=== PATIENT | female | born 1985 | race Caucasian/White ===

== ENCOUNTER 2020-05-19 07:16 | Day surgery (SDC) | payer BC ==
[~2020-05-19 07:16] MED LIST: Sodium Chloride 0.9% 10 ML Syringe FLUSH PRN; ceFAZolin 1 GM Vial IVPUSH ONE; ceFAZolin 1 GM in Sodium Chloride 0.9% 50 ML IV ONE
[2020-05-19] MEDS ORDERED: Lactated Ringers 1,000 ML IV ONE (07:17)
[2020-05-19] MEDS ORDERED: Rocuronium 50 MG/5 ML Vial IV ONE (07:17)
[2020-05-19] MEDS ORDERED: Propofol 200 MG/20 ML SDV IV ONE (07:17)
[2020-05-19] MEDS ORDERED: fentaNYL 100 MCG/2 ML SDV IV ONE (07:17)
[2020-05-19] MEDS ORDERED: Midazolam 1 MG/ML 2 ML SDV IV ONE (07:17)
[2020-05-19] MEDS ORDERED: Ketorolac 30 MG/ML SDV IVPUSH ONE (07:17)
[2020-05-19] MEDS ORDERED: Ondansetron 4 MG/2 ML SDV IVPUSH ONE (07:17)
[2020-05-19] MEDS ORDERED: Scopolamine 1.5 MG Transdermal Patch TOP ONE (07:40)
[2020-05-19] MEDS: Lactated Ringers 1,000 ML IV SCH ×2 (08:13→09:28)
[2020-05-19] MEDS ORDERED: Lidocaine 1% with EPINEPHrine 1:100,000 20 ML MDV INJECT ONE (08:46)
[2020-05-19] MEDS ORDERED: Bupivacaine 0.5% 30 ML SDV INJECT ONE (08:46)
--- NOTE | 2020-05-19 09:11 | PCM.OPNOTE ---
- General Post-Op/Procedure Note Date of Surgery/Procedure: 05/19/20 Operative Procedure(s): umbilical hernia repair Findings: 2.5 cm defect Pre Op Diagnosis: umbilical hernia without obstruction and gangrene Post-Op Diagnosis: Same Anesthesia Technique: General LMA, Local (7 ml 1% lidocaine with epi/0.5% marcaine) Primary Surgeon: Keith Philip Anesthesia Provider: Siddharth Waters Complications: None Condition: Good Free Text/Narrative:: see dictation [id number]
[2020-05-19] MEDS ORDERED: Acetaminophen/HYDROcodone 325-5 MG Tab PO PRN (09:13)
--- NOTE | 2020-05-19 12:23 | OR ---
DATE OF OPERATION: 05/19/2020 SURGEON: Keith Philip MD PROCEDURE PERFORMED: Umbilical hernia repair. PREOPERATIVE DIAGNOSIS: Umbilical hernia without obstruction or gangrene. POSTOPERATIVE DIAGNOSIS: Umbilical hernia without obstruction or gangrene. INDICATIONS FOR PROCEDURE: This is a 34-year-old white female who has a symptomatic umbilical hernia with rather small defect measuring roughly about 2 cm in size. She was offered and accepted repair. We planned a primary repair as she still would like to have some children and wanted to avoid any issues with mesh. INTRAOPERATIVE FINDINGS: 7 mL of 1:1 mixture of 1% lidocaine with epinephrine and 0.5% bupivacaine was used. A 2.5 cm defect was identified. DESCRIPTION OF OPERATION: After an excellent LMA anesthetic was administered, the patient was prepped and draped in the usual sterile manner. Our local mixture was then used to infiltrate and create a field block surrounding the umbilicus. A curvilinear incision was then carried out with a #15 scalpel blade. A combination of blunt and sharp dissection was then carried out dissecting around the hernia sac itself and then dissecting it free from the underlying umbilicus. The hernia sac and the attenuated fascia were then divided with a combination of sharp scissor dissection and electrocautery. The defect was then closed in a [id number] repair with 3 interrupted vertical mattress sutures of 0 Ethibond and then tacking the superior flap over the inferior fascia with an additional 3-0 Ethibond. The middle Ethibond was used to incorporate the underside of the umbilicus to tack this down to the anterior abdominal wall. The skin was then closed with a running 4-0 Vicryl. Steri- Strips were applied. Needle, sponge, and instrument counts were reported as correct. The patient was taken to Recovery in good condition. /[id number] /MODL
== END 2020-05-19 10:40 | disposition home or self-care (01) ==
LOC: FB.SDS 07:16
PROVIDERS: ATTEND Surgery
DX: K42.9 Umbilical hernia without obstruction or gangrene (principal); Z79.899 Other long term (current) drug therapy
CPT/HCPCS: 00750-QZ; 81025; A9270-GY; J0690; J1885; J2250; J2405; J2704; J3010; J3490; J7120